=== PATIENT | female | born 1965 | race Hispanic/Latino ===

== ENCOUNTER → 2017-06-24 | Outpatient (CLI) | payer BC ==
--- NOTE | 2017-07-03 15:46 | Diagnostic Imaging Report ---
#[id number] - MGSCRBIL #BILATERAL DIGITAL SCREENING MAMMOGRAM WITH CAD: 06/24/2017 CLINICAL: Routine screening. Comparison is made to exams dated: 05/20/2016 mammogram and 05/19/2015 mammogram - [facility]. Current study contains 4 films. The tissue of both breasts is predominantly fatty. Current study was also evaluated with a Computer Aided Detection (CAD) system. There are benign calcifications in both breasts. No significant masses, calcifications, or other findings are seen in either breast. There has been no significant interval change. IMPRESSION: BENIGN There is no mammographic evidence of malignancy. A 1 year screening mammogram is recommended. The patient will be notified by letter of the results. Rikki wadsworth/maximilian:07/03/2017 09:54:44 [place] Weaver: Sabrina ABBASI(Levy)(M), [facility] letter sent: Compared to Prior B9 Mammogram BI-RADS: 2 Benign
== END ==
LOC: MAMMO 08:08
PROVIDERS: ATTEND Internal Medicine
DX: Z12.31 Encounter for screening mammogram for malignant neoplasm of breast (principal)
CPT/HCPCS: G0202

== ENCOUNTER → 2017-07-28 | Day surgery (SDC) | payer BC ==
[~2017-07-28] MED LIST: BELLADONNA/OPIUM 60 MG SUPP PR ONE; CEFAZOLIN SOD 2 GM/D5W 50ML 50 ML IV ONE; DEXAMETHASONE SOD PHOS INJ 4 MG/ML VIAL ONE; FENTANYL CITRATE/PF 100MCG/2 ML INJ ONE; IOPAMIDOL 610MG/1ML 300 MG/ML VIAL IV ONE; LIDOCAINE HCL 2% LOCAL INJ 5 ML SDV VIAL INJ ONE; METHYLENE BLUE 1% INJ 10 ML VIAL INJ ONE; MIDAZOLAM HCL 2 MG/2 ML VIAL ONE; ONDANSETRON HCL INJ 2 MG/ML VIAL ONE; PRAVASTATIN SOD10 MG; PROPOFOL IV EMULSION 10 MG/ML 20 ML VIAL ONE; ROCURONIUM BROMIDE 10 MG/ML 5ML VIAL ONE; SEVOFLURANE INHAL SOLN 250 ML PEN BTL ONE
--- NOTE | 2017-07-28 19:36 | Operative Report ---
DATE OF PROCEDURE: July 28, 2017 PREOPERATIVE DIAGNOSES 1. Gross hematuria, history of. 2. Large bladder tumor. POSTOPERATIVE DIAGNOSES 1. Gross hematuria, history of. 2. Large bladder tumor. 3. Obstructed left ureter by tumor. OPERATIONS PERFORMED: 1. Cystoscopy and right retrograde pyelograms under fluoroscopic control. 2. Transurethral resection of large bladder tumor on the floor of the bladder and toward the left side overlying the left ureteral orifice. 3. Following the resection of the tumor of the orifice, the orifice was identified and open-ended catheter was inserted and retrograde pyelograms were done and placement of double J stent. 4. Interpretation of x-ray. Radiologist not present. 5. Supervision of fluoroscopy. Radiologist not present. ASSISTANT FRONT DESK MANAGER: None. ANESTHESIA: General. CLINICAL INDICATION NOTE: This is a 52-year-old female patient that presented to the office with gross hematuria. Cystoscopy in the office suggested tumor on the left side of the bladder and trigone. The patient was brought for cystoscopy, retrograde and resection of the tumor. Patient was advised about the procedure, potential benefit and complication discussed, explained and accepted. DESCRIPTION OF PROCEDURE AND FINDINGS: After proper level of anesthesia was achieved, the patient was placed in lithotomy position and prepped and draped in sterile fashion. Urethra inspected is unremarkable. Bladder outlet is normal. Bladder mucosa demonstrated a large tumor on the trigone on the left side. Some of it is extending more laterally. The left ureteral orifice cannot be identified, all of it is covered by tumor. Right ureteral orifice was identified and open-end catheter inserted and retrograde pyelogram demonstrating a normal collecting system on the right side with no filling defects. Following this resectoscope was inserted and systematic resection of the tumor was done. Any visible bleeding points were carefully coagulated. Following resection of the tumor off the left ureteral orifice it was possible to identify, cannulize it with an open-end catheter and retrograde pyelogram was done demonstrating no filling defect in the system. Guidewire was kept in place and a 7-Chinese 24 cm long double J stent was properly positioned on the left side, and this was verified by x-ray. At this point, the bladder was irrigated. No significant bleeding was noticed. A 22-Chinese 10 mL Rivas catheter was inserted and a B and O suppository was inserted rectally. The patient tolerated procedure well. No significant bleeding was noticed. The specimens were sent to pathology, superficial and deep tumors. Patient was transferred in satisfactory condition to recovery room. She will be followed. Job#: [id number] SUZY
== END | disposition home or self-care (01) ==
LOC: OR 08:24
PROVIDERS: ATTEND Urology
DX: C67.0 Malignant neoplasm of trigone of bladder (principal); Z01.810 Encounter for preprocedural cardiovascular examination
CPT/HCPCS: 52240; 52332; 74420; 81025; 88305; 93005; C1758; C2617; J1100; J2001; J2250; J2405; Q9967

== ENCOUNTER → 2017-09-10 | Day surgery (SDC) | payer BC ==
[~2017-09-10] MED LIST changes: +ATORVASTATIN CA10 MG PO; -BELLADONNA/OPIUM 60 MG SUPP PR ONE; +CEFAZOLIN SOD 1 GM VIAL ONE; -CEFAZOLIN SOD 2 GM/D5W 50ML 50 ML IV ONE; -METHYLENE BLUE 1% INJ 10 ML VIAL INJ ONE; +SUGAMMADEX SODIUM 200 MG/2 ML VIAL IV ONE
--- OUTSIDE RECORDS SUMMARY | 2017-09-10 07:22 | XMS REPORT ---
Author Author [facility] Address Unknown Phone Unavailable Care Team Providers Care Box Press Operator Name Role Phone JENY GARAY Unavailable Unavailable Problems This patient has no known problems. Allergies, Adverse Reactions, Alerts This patient has no known allergies or adverse reactions. Medications This patient has no known medications. Results Test Description Test Time Test Comments Text Results Atomic Results Result Comments MAMMOGRAPHY DIGITAL SCR BILAT [place] [address] Patient Name: MED FU MR #: [id number] : 1965 Age/Sex: 51/F Req #: [id number] [facility] Physician: Ordered by: JENY GARAY MD Report #: [id number] Location: MAMMO Room/Bed: Procedure: [id number] MG/MAMMOGRAPHY DIGITAL SCR BILAT Exam Date: 06/24/17 Exam Time: 0846 REPORT STATUS: Signed # [id number] - MGSCRBIL #BILATERAL DIGITAL SCREENING MAMMOGRAM WITH CAD: CLINICAL: Routine screening. Comparison is made to exams dated : 05/20/2016 mammogram and 05/19/2015 mammogram - [facility]. Current study contains 4 films. The tissue of both breasts is predominantly fatty. Current study was also evaluated with a Computer Aided Detection (CAD) system. There are benign calcifications in both breasts. No significant masses, calcifications, or other findings are seen in either breast. There has been no significant interval change. IMPRESSION: BENIGN There is no mammographic evidence of malignancy. A 1 year screening mammogram is recommended. The patient will be notified by letter of the results. Ponce wadsworth/gary:07/03/2017 09:54:44 Mortgage Loan Officer Originator: Sabrina SAMANIEGO)(Fidel), [facility] letter sent: Compared to Prior B9 Mammogram BI- RADS: 2 Benign Dictated By: PONCE HODGES DO [id number] Transcribed By: GARY on 07/03/17 0954 COPY TO: JENY GARAY MD
--- NOTE | 2017-09-10 10:31 | Operative Report ---
DATE OF PROCEDURE: September 10, 2017 SERVICE: Urology. PREOPERATIVE DIAGNOSES 1. 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 2. Double-J stent on left side. POSTOPERATIVE DIAGNOSES 1. 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 2. Double-J stent on left side. OPERATION PERFORMED 1. Transurethral resection of base of the previous tumor. 2. Removal of a small what appeared to be superficial bladder tumor. 3. Random bladder biopsies. HAND CULTIVATOR: None. ANESTHESIA: General. CLINICAL INDICATIONS: This is a 52-year-old patient who was found to have a transitional cell cancer of the bladder. It was resected. She was brought for secondary resection of the base of the tumor and reassessment of the bladder. Patient was advised about it. She knows that she may need a catheter at the end of the procedure. Procedure, potential benefits and complications were discussed, explained and accepted. DESCRIPTION OF PROCEDURE AND FINDINGS: After proper level of anesthesia was achieved, the patient was placed in lithotomy position, prepped and draped in the usual sterile fashion. Urethra was inspected and was unremarkable. The bladder was then inspected. A very small, what appeared to be superficial, papillary lesion was noticed above the left ureteral orifice. This was removed with the resectoscope and sent separately to pathology. Following this, resection at the base where the tumor used to be in the previous resection was done and sent again separately to pathology. This was followed by random biopsies of the bladder. Coagulation electrode was then inserted, and any visible bleeding points as well as the base of the tumors were carefully coagulated. Patient tolerated the procedure well. A 22 Rivas catheter with 10 mL balloon was inserted. She was transferred in satisfactory condition to the recovery room. Postop orders given. Job#: [id number]
== END | disposition home or self-care (01) ==
LOC: OR 07:20
PROVIDERS: ATTEND Urology
DX: Z08 Encounter for follow-up examination after completed treatment for malignant neoplasm (principal); Z85.51 Personal history of malignant neoplasm of bladder; N30.20 Other chronic cystitis without hematuria
CPT/HCPCS: 52214; 52234; 81025; 88305; 88342; J0690; J1100; J2001; J2250; J2405

== ENCOUNTER → 2017-10-15 | Day surgery (SDC) | payer BC ==
[~2017-10-15] MED LIST changes: +BELLADONNA/OPIUM 60 MG SUPP PR ONE; -ROCURONIUM BROMIDE 10 MG/ML 5ML VIAL ONE; -SUGAMMADEX SODIUM 200 MG/2 ML VIAL IV ONE
--- NOTE | 2017-10-15 13:09 | Operative Report ---
DATE OF PROCEDURE: October 15, 2017 PREOPERATIVE DIAGNOSES 1. History of transitional cell cancer of the bladder with involvement of the left ureteral orifice. 2. Left hydronephrosis. 3. Presence of double J stent on the left side. POSTOPERATIVE DIAGNOSES 1. History of transitional cell cancer of the bladder with involvement of the left ureteral orifice. 2. Left hydronephrosis. 3. Presence of double J stent on the left side. OPERATION PERFORMED 1. Cystourethroscopy removal of double J stent from the left side. 2. Left retrograde pyelograms under fluoroscopic control. 3. Left ureteroscopy. 4. Interpretation of x-ray. 5. Supervision of fluoroscopy. PLEATING SUPERVISOR: None. ANESTHESIA: General. CLINICAL INDICATION NOTE: This is a 52-year-old patient was brought for removal of a stent and reassessment of the bladder in the left system. Patient did have in the past resection of bladder tumor involving the orifice on the left side. Procedure was discussed with the patient. Potential benefits and complications discussed, explained and accepted. DESCRIPTION OF PROCEDURE AND FINDINGS: After proper level of anesthesia was achieved, the patient was placed in lithotomy position, prepped and draped in a sterile fashion. Urethra inspected, is unremarkable. Outlet is normal. Bladder mucosa is normal. No tumor identified in the bladder. Double J stent is protruding at the left ureteral orifice. It was grasped and pulled to the urethral meatus. A wire was passed through it, advanced to the kidney. Open-ended catheter was placed. Retrograde pyelogram demonstrating minimal dilation of the system. Following this, a guide was kept in place and flexible ureteroscopy was done. No lesions, no tumor, no foreign bodies were identified in the pelvis or the ureter. Stent was not to reposition. The bladder was irrigated. The scope was removed. Patient was transferred in satisfactory condition to recovery room. She will be followed as outpatient. Job#: [id number] ANTONIA
== END | disposition home or self-care (01) ==
LOC: OR 07:13
PROVIDERS: ATTEND Urology
DX: N13.30 Unspecified hydronephrosis (principal); Z85.51 Personal history of malignant neoplasm of bladder; Z85.54 Personal history of malignant neoplasm of ureter; Z46.6 Encounter for fitting and adjustment of urinary device; E78.5 Hyperlipidemia, unspecified
CPT/HCPCS: 52351; 74420; 81025; J0690; J1100; J2001; J2250; J2405; Q9967

== ENCOUNTER → 2018-06-25 | Outpatient (CLI) | payer BC ==
[~2018-06-25] MED LIST changes: -BELLADONNA/OPIUM 60 MG SUPP PR ONE; -CEFAZOLIN SOD 1 GM VIAL ONE; -DEXAMETHASONE SOD PHOS INJ 4 MG/ML VIAL ONE; -FENTANYL CITRATE/PF 100MCG/2 ML INJ ONE; -IOPAMIDOL 610MG/1ML 300 MG/ML VIAL IV ONE; -LIDOCAINE HCL 2% LOCAL INJ 5 ML SDV VIAL INJ ONE; -MIDAZOLAM HCL 2 MG/2 ML VIAL ONE; -ONDANSETRON HCL INJ 2 MG/ML VIAL ONE; -PROPOFOL IV EMULSION 10 MG/ML 20 ML VIAL ONE; -SEVOFLURANE INHAL SOLN 250 ML PEN BTL ONE
--- NOTE | 2018-07-06 08:15 | Diagnostic Imaging Report ---
#[id number] - MGSCRBIL #BILATERAL DIGITAL SCREENING MAMMOGRAM WITH CAD: 06/25/2018 CLINICAL: Routine screening. Comparison is made to exams dated: 06/24/2017 mammogram and 05/19/2015 mammogram - [facility]. Current study contains 4 films. The tissue of both breasts is predominantly fatty. Current study was also evaluated with a Computer Aided Detection (CAD) system. There are benign calcifications in both breasts. No significant masses, calcifications, or other findings are seen in either breast. There has been no significant interval change. IMPRESSION: BENIGN There is no mammographic evidence of malignancy. A 1 year screening mammogram is recommended. The patient will be notified by letter of the results. Rikki wadsworth/maximilian:07/05/2018 13:22:34 Child Custody Evaluator: Sabrina SAMANIEGO)(Fidel), [facility] letter sent: Compared to Prior B9 Mammogram BI-RADS: 2 Benign
== END ==
LOC: MAMMO 13:54
PROVIDERS: ATTEND Internal Medicine
DX: Z12.31 Encounter for screening mammogram for malignant neoplasm of breast (principal)
CPT/HCPCS: 77067

== ENCOUNTER → 2020-06-08 | Outpatient (CLI) | payer BC | LOC: MAMMO 15:29 | PROVIDERS: ATTEND Internal Medicine | DX: Z12.31 Encounter for screening mammogram for malignant neoplasm of breast (principal) | CPT/HCPCS: 77067 ==

== ENCOUNTER → 2021-07-12 | Outpatient (CLI) | payer BC | LOC: MAMMO 14:32 | PROVIDERS: ATTEND Internal Medicine | DX: Z12.31 Encounter for screening mammogram for malignant neoplasm of breast (principal) | CPT/HCPCS: 77067 ==

== ENCOUNTER → 2022-09-12 | Outpatient (CLI) | payer BC | LOC: MAMMO 12:12 | PROVIDERS: ATTEND Internal Medicine | DX: Z12.31 Encounter for screening mammogram for malignant neoplasm of breast (principal) | CPT/HCPCS: 77067 ==

== ENCOUNTER → 2024-12-23 | Outpatient (REF) | payer OTHER | LOC: US 12:57 | PROVIDERS: ATTEND Urology | DX: C67.9 Malignant neoplasm of bladder, unspecified (principal) | CPT/HCPCS: 76770; 76857 ==

== ENCOUNTER → 2025-02-03 | Outpatient (REF) | payer OTHER | LOC: MAMMO 10:14 | PROVIDERS: ATTEND Internal Medicine | DX: Z12.31 Encounter for screening mammogram for malignant neoplasm of breast (principal) | CPT/HCPCS: 77067 ==